=== PATIENT | male | born 1980 | race Caucasian/White ===

== ENCOUNTER 2022-12-10 19:48 | Outpatient (REF) | payer OTHER, SELFPAY ==
[2022-12-10 20:23] LABS: Abs Immature Grans 0.14 10^3/uL (0.0-0.06); Absolute Basophil Count 0.05 10^3/uL (0.0-0.2); Absolute Eosinophil Count 0.19 10^3/uL (0.0-0.7); Absolute Lymphocyte Count 2.78 10^3/uL (1.2-3.4); Absolute Monocyte Count 1.04 10^3/uL (0.1-0.8); Absolute Neutrophil Count 4.75 10^3/uL (1.2-6.7); Basophils % 0.6; Eosinophils % 2.1; HCT 52.8 % (40.0-50.0); HGB 17.7 g/dL (13.5-17.5); Immature Grans % 1.6; Lymphocytes % 31.1; MCH 29.6 pg (27.0-33.0); MCHC 33.5 % (32.0-36.0); MCV 88 fL (80-95); Monocytes % 11.6; Platelet Count 272 10^3/uL (130-400); RBC 5.97 10^6/uL (4.36-5.78); RDW 11.9 % (11.8-14.1); RDW-SD 38.5 fL; WBC 8.95 10^3/uL (4.4-10.8)
[2022-12-10 20:56] LABS: ALT 70 U/L (16-63); AST 37 U/L (15-37); Albumin 5.1 g/dL (3.4-5.0); Alkaline Phosphatase 118 U/L (46-116); Anion Gap 9.6 mmol/L (3-11); BUN 23 mg/dL (7-18); Bilirubin, Total 0.3 mg/dL (0.2-1.0); CO2 29.4 mmol/L (21.0-32.0); Calcium 9.9 mg/dL (8.5-10.1); Chloride 100 mmol/L (98-107); Estimated GFR 96.37 (mL/min/1.73m2); Glucose 59 mg/dL (74-106); Sodium 139 mmol/L (136-145); TSH (W/Ref FT4) 1.81 uIU/mL (0.36-3.74); Total Protein 8.1 g/dL (6.4-8.2)
[2022-12-10 21:33] LABS: Vitamin D 25 Total 18.1 ng/mL (30-100)
== END 2022-12-10 19:49 | disposition home or self-care (01) ==
LOC: LBN 19:48
PROVIDERS: PCP Internal Medicine; Visit Provider Registered Nurse
DX: F41.8 Other specified anxiety disorders (principal); E55.9 Vitamin D deficiency, unspecified; R53.83 Other fatigue; E78.5 Hyperlipidemia, unspecified
CPT/HCPCS: 80053; 82306; 84443; 85025